=== PATIENT | female | born 1985 | race Caucasian/White ===

== ENCOUNTER 2016-09-05 13:20 | Outpatient (CLI) | payer MEDICAID | END 2016-09-05 13:21 | disposition home or self-care (01) | DX: L29.9 Pruritus, unspecified (principal); Z33.1 Pregnant state, incidental ==

== ENCOUNTER 2016-09-06 09:16 | Outpatient (CLI) | payer MEDICAID | END 2016-09-06 09:17 | disposition home or self-care (01) | DX: L29.9 Pruritus, unspecified (principal) ==

== ENCOUNTER 2017-11-15 14:30 | Outpatient (CLI) | payer MEDICAID ==
--- NOTE | 2017-11-15 15:32 | XRAY Report ---
Procedure Date: 11/15/2017 Accession Number: [id number] / [id number] Procedure: XRS - Foot 3 View LT CPT Code: FULL RESULT: EXAM: Foot 3 View LT DATE: 11/15/2017 2:52 PM CLINICAL HISTORY: FOOT JOINT PAIN, LEFT COMPARISON: None TECHNIQUE: 3 views. FINDINGS: Bones: Normal. No fractures or bone lesions. Joints: Normal. No dislocations. Soft Tissues: Normal. No soft tissue swelling. IMPRESSION: Normal foot radiography. [facility]
== END 2017-11-15 14:31 | disposition home or self-care (01) ==
LOC: DI.S 14:30
PROVIDERS: ATTEND Nurse Practitioner Family
DX: M79.672 Pain in left foot (principal)

== ENCOUNTER 2018-08-26 10:08 | Outpatient (CLI) | payer OTHER ==
--- NOTE | 2018-09-03 18:17 | Ultrasound Report ---
Reason: RIGHT BREAST Procedure Date: 08/26/2018 Accession Number: [id number] / [id number] Procedure: US - Breast Unilateral Limited CPT Code: FULL RESULT: EXAM: FOCUSED RIGHT BREAST ULTRASOUND. EXAM DATE: 08/26/2018 11:39 AM. CLINICAL HISTORY: Right breast pain. COMPARISON: None. TECHNIQUE: Focused right breast ultrasound was performed of the area indicated as painful in the lower outer quadrant from the 6 o'clock to 8 o'clock position. FINDINGS: Normal breast tissue is identified. No abnormal mass or collection is identified. IMPRESSION: Normal breast ultrasound. BI-RADS: 1 Recommendation: Clinical correlation. [facility]
== END 2018-08-26 10:09 | disposition home or self-care (01) ==
LOC: DI 10:08
PROVIDERS: ATTEND Nurse Practitioner Family
DX: N64.4 Mastodynia (principal)
CPT/HCPCS: 76642

== ENCOUNTER 2020-03-16 09:40 | Day surgery (SDC) | payer MEDICAID ==
[2020-03-16] MEDS ORDERED: MIDAZOLAM 2 MG/2 ML VIAL IVP ONE (09:41)
[2020-03-16] MEDS ORDERED: ONDANSETRON 4 MG/2 ML VIAL IVP ONE (09:41)
[2020-03-16] MEDS ORDERED: fentaNYL 250 MCG/5 ML VIAL IVP ONE (09:41)
[2020-03-16] MEDS ORDERED: LACTATED RINGERS 1,000 ML IV ONE ×2 (10:35→15:17)
[2020-03-16 15:36] VITALS: BP 101/74
== END 2020-03-16 09:41 | disposition home or self-care (01) ==
LOC: SDS 09:40
PROVIDERS: ATTEND Surgery
PROC: 0DBP8ZX Excision of Rectum, Via Natural or Artificial Opening Endoscopic, Diagnostic (ICD-10-PCS; 2020-03-16)
PROC: 0W3P8ZZ Control Bleeding in Gastrointestinal Tract, Via Natural or Artificial Opening Endoscopic (ICD-10-PCS; 2020-03-16)
PROC: 0DBB8ZX Excision of Ileum, Via Natural or Artificial Opening Endoscopic, Diagnostic (ICD-10-PCS; principal; 2020-03-16 10:45)
DX: R19.4 Change in bowel habit (principal); R10.9 Unspecified abdominal pain; K62.5 Hemorrhage of anus and rectum; Z80.0 Family history of malignant neoplasm of digestive organs; K62.89 Other specified diseases of anus and rectum; K64.8 Other hemorrhoids; Z87.891 Personal history of nicotine dependence
CPT/HCPCS: 45380; 45382; J3010; J7120